=== PATIENT | female | born 1995 | race Caucasian/White ===

== ENCOUNTER 2017-02-12 23:04 | Emergency (ER) | payer MEDICAID ==
[~2017-02-12] VITALS: Ht 162.6 cm; Wt 68.0 kg
--- NOTE | 2017-02-12 23:14 | NUR ---
DR TAYLOR INT EVAL PATIENT
[2017-02-12] MEDS ORDERED: ACETAMINOPHEN ES 500 MG TABLET PO ONE (23:30)
[2017-02-12] MEDS ORDERED: ACETAMINOPHEN ES 500 MG TABLET ONE (23:33)
== END 2017-02-12 23:57 | disposition home or self-care (01) ==
LOC: ER 23:06
DX: M54.2 Cervicalgia (principal); F17.200 Nicotine dependence, unspecified, uncomplicated; V49.9XXA Car occupant (driver) (passenger) injured in unspecified traffic accident, initial encounter; Y93.89 Activity, other specified; Y92.413 State road as the place of occurrence of the external cause; Y99.9 Unspecified external cause status
CPT/HCPCS: A4663

== ENCOUNTER 2017-02-15 11:14 | Emergency (ER) | payer MEDICAID ==
[~2017-02-15] VITALS: Ht 162.6 cm; Wt 68.0 kg
--- NOTE | 2017-02-15 11:40 | NUR ---
PATIENT WAS SEEN BY MD FOR C/O NUASEA AND PAIN.
[2017-02-15] MEDS: KETOROLAC TROMETHAMINE 30 MG INJ IM ONE (11:45)
[2017-02-15] MEDS: ONDANSETRON ODT 4 MG TAB.RAPDIS SL ONE (11:45)
[2017-02-15] MEDS ORDERED: ONDANSETRON ODT 4 MG TAB.RAPDIS ONE (11:53)
[2017-02-15] MEDS ORDERED: KETOROLAC TROMETHAMINE 30 MG INJ ONE (11:53)
--- NOTE | 2017-02-15 12:45 | NUR ---
PATIENT STATES PAIN AND NAUSEA HAVE DIMINISHED.
--- NOTE | 2017-02-15 13:37 | NUR ---
DC, RX AND FOLLOW UP INSTRUCTIONS GIVEN AND EXPLAINED TO PATIENT WHO STATE SHE UNDERSTANDS ALL INSTRUCTIONS.
[2017-02-15 13:38] VITALS: BP 118/68
== END 2017-02-15 13:38 | disposition home or self-care (01) ==
LOC: ER 11:14
DX: S20.219A Contusion of unspecified front wall of thorax, initial encounter (principal); M54.5 Low back pain; V89.2XXA Person injured in unspecified motor-vehicle accident, traffic, initial encounter; Y93.89 Activity, other specified; Y92.413 State road as the place of occurrence of the external cause; Y99.9 Unspecified external cause status; F17.200 Nicotine dependence, unspecified, uncomplicated
CPT/HCPCS: 71101; 93005; 96372; 99284; A4663; J1885; Q0162

== ENCOUNTER 2017-08-07 19:36 | Emergency (ER) | payer MEDICAID, OTHER ==
[~2017-08-07] VITALS: Ht 162.6 cm; Wt 63.5 kg
--- NOTE | 2017-08-07 19:50 | NUR ---
Patient in bed, family at bedside. Patient states she has lower abd pain and has c/o palpitations due to the abd pain.
[2017-08-07] MEDS ORDERED: ONDANSETRON IV *ER 4 MG/2 ML VIAL IV ONE ×2 (20:15→22:45)
[2017-08-07] MEDS ORDERED: HYDROMORPHONE 1 MG/1 ML DISP.SYRIN IV ONE ×2 (20:15→22:45)
[2017-08-07] MEDS ORDERED: IV NORMAL SALINE 500 ML BAG IV ONE ×2 (20:15)
[2017-08-07] MEDS ORDERED: HYDROMORPHONE 2 MG/1 ML DISP.SYRIN ONE ×2 (20:18→22:35)
[2017-08-07] MEDS ORDERED: ONDANSETRON 4 MG/2 ML VIAL ONE ×2 (20:19→22:35)
[2017-08-07 20:28] LABS: BASOPHILS % (AUTO) 0.7 % (0.0-2.0); EOSINOPHILS # (AUTO) 0.1 K/uL (0.0-0.7); EOSINOPHILS % (AUTO) 2.1 % (0.0-7.0); HEMOGLOBIN 13.6 g/dL (10.9-14.3); LYMPHOCYTES # (AUTO) 3.1 K/uL (20.0-40.0); LYMPHOCYTES % (AUTO) 43.7 % (20.5-51.5); MEAN CORPUSCULAR HEMOGLOBIN 30.2 uug (24.7-32.8); MEAN CORPUSCULAR HGB CONC 33 g/dL (32.3-35.6); MEAN CORPUSCULAR VOLUME 91.5 fL (75.5-95.3); MONOCYTES # (AUTO) 0.4 K/uL (2.0-10.0); NEUTROPHILS # (AUTO) 3.4 K/uL (1.8-8.9); NEUTROPHILS % (AUTO) 47.5 % (38.5-71.5); PLATELET COUNT (AUTO) 287 K/uL (179-408); RED BLOOD CELL COUNT(AUTO) 4.48 MIL/uL (3.63-4.92); WHITE BLOOD COUNT (AUTO) 7.1 K/uL (3.8-11.8)
--- NOTE | 2017-08-07 20:28 | NUR ---
Patient in bed, no acute distress noted. Will continue to monitor patient.
[2017-08-07 20:34] LABS: CREATININE 0.8 mg/dL (0.6-1.3); POTASSIUM 3.6 mmol/L (3.5-5.1)
[2017-08-07 20:43] LABS: BILIRUBIN,DIRECT 0.1 mg/dL (0.0-0.2); BILIRUBIN,TOTAL 0.3 mg/dL (0.2-1.0); TOTAL PROTEIN, SERUM 6.9 g/dL (6.4-8.2)
[2017-08-07 21:28] LABS: *BILIRUBIN,URIN NEGATIVE (NEGATIVE); *BLOOD, URINE 2+ (NEGATIVE); *COLOR,URINE YELLOW (YELLOW); *KETONES,URINE NEGATIVE (NEGATIVE); *PROTEIN,URINE NEGATIVE (NEGATIVE); *UROBILINOGEN,URINE 0.2 E.U./dl (NORMAL); LEUKOCYTE ESTERASE ,URINE NEGATIVE (NEGATIVE); NITRITE, URINE NEGATIVE (NEGATIVE); UGLUCOSE NEGATIVE (NEGATIVE)
[2017-08-07 21:29] LABS: *URINE HCG, QUAL NEGATIVE (NEGATIVE)
[2017-08-07 21:30] LABS: *CLARITY,URINE SLIGHTLY HAZY (CLEAR)
[2017-08-07 21:34] LABS: RBC,URINE 20-50 /HPF (0-3)
[2017-08-07 21:35] LABS: BACTERIA,URINE FEW /HPF (NONE SEEN); MUCUS,URINE MODERATE /LPF (0-FEW); SQUAMOUS EPITHELIAL CELL,UR MODERATE /HPF (NONE SEEN)
--- NOTE | 2017-08-07 21:42 | NUR ---
Patient taken to CT via gurney with transporter
--- NOTE | 2017-08-07 22:15 | NUR ---
Patient back from CT. No acute distress noted.
--- NOTE | 2017-08-07 22:47 | NUR ---
Patient discharged to home in stable conditon. Written and verbal after care instructions given. Patient verbalizes understanding of instructions. Ambulated from ER with stable gait. All belongings with patient. patient will be driven home in private vehicle by significant other. Peripheral IV removed.
[2017-08-07 22:48] VITALS: BP 121/74
== END 2017-08-07 22:50 | disposition home or self-care (01) ==
LOC: ER 19:39
DX: N83.201 Unspecified ovarian cyst, right side (principal)
CPT/HCPCS: 36415; 71045; 74176; 76856; 80048; 80076; 81001; 83690; 84703; 85025; 93005; 96361; 96374; 96375; 96376; 99285; A4663; J1170 ×2; J2405 ×2; J7040

== ENCOUNTER 2019-07-23 00:38 | Emergency (ER) | payer MEDICAID, OTHER ==
[~2019-07-23] VITALS: Ht 165.1 cm; Wt 72.6 kg
--- NOTE | 2019-07-23 00:55 | NUR ---
Dr. Martinez at bedside for MSE
[2019-07-23] MEDS ORDERED: HYDROMORPHONE 2 MG/1 ML DISP.SYRIN ONE (01:14)
[2019-07-23] MEDS ORDERED: ONDANSETRON 4 MG/2 ML VIAL ONE (01:14)
[2019-07-23] MEDS ORDERED: HYDROMORPHONE 1 MG/1 ML DISP.SYRIN IM ONE (01:15)
[2019-07-23] MEDS ORDERED: ONDANSETRON 4 MG/2 ML VIAL IM ONE (01:15)
--- NOTE | 2019-07-23 02:20 | NUR ---
Patient discharged to home in stable conditon. Written and verbal after care instructions given. Patient verbalizes understanding of instructions. Patient ambulating with crutches. Family at bedside to drive patient home
[2019-07-23 03:00] VITALS: BP 126/73
== END 2019-07-23 02:20 | disposition home or self-care (01) ==
LOC: ER 00:42
DX: S82.891A Other fracture of right lower leg, initial encounter for closed fracture (principal); F17.200 Nicotine dependence, unspecified, uncomplicated; F10.10 Alcohol abuse, uncomplicated; W18.2XXA Fall in (into) shower or empty bathtub, initial encounter; Y93.89 Activity, other specified; Y92.89 Other specified places as the place of occurrence of the external cause; Y99.8 Other external cause status
CPT/HCPCS: 72192; 73610; 96372 ×2; 99284; J1170; J2405; A4663

== ENCOUNTER 2019-08-07 11:01 | Emergency (ER) | payer MEDICAID, OTHER ==
[~2019-08-07] VITALS: Ht 165.1 cm; Wt 72.6 kg
--- NOTE | 2019-08-07 11:07 | NUR ---
ERMD AT BEDSIDE FOR HX AND PHYSICAL PT IS AMBULATORY W/ CRUTCHES AOX3 RA NAD
--- NOTE | 2019-08-07 11:34 | NUR ---
DIRECTOR OF PROMOTIONS AT BEDSIDE
[2019-08-07] MEDS ORDERED: ONDANSETRON ODT 4 MG TAB.RAPDIS ONE ×2 (11:56→11:57)
[2019-08-07] MEDS ORDERED: MORPHINE SULFATE 2 MG/1 ML DISP.SYRIN IM ONE (12:00)
[2019-08-07] MEDS ORDERED: HYDROCODONE/APAP 10-325 MG TABLET PO ONE (12:00)
[2019-08-07] MEDS ORDERED: ONDANSETRON ODT 4 MG TAB.RAPDIS SL ONE (12:00)
[2019-08-07] MEDS ORDERED: MORPHINE SULFATE 4 MG/1 ML DISP.SYRIN ONE (12:01)
--- NOTE | 2019-08-07 12:32 | NUR ---
Patient discharged to home in stable conditon. Written and verbal after care instructions given. Patient verbalizes understanding of instructions. AMBULATORY W/ STABLE GAIT W/ CRUTCHES, AND R CAM BOOT ALL BELONGINGS W/ PT SISTER WILL DRIVE HER HOME
[2019-08-07 12:34] VITALS: BP 138/76
== END 2019-08-07 12:35 | disposition home or self-care (01) ==
LOC: ER 11:01
DX: G89.18 Other acute postprocedural pain (principal); F17.200 Nicotine dependence, unspecified, uncomplicated
CPT/HCPCS: 73610; 96372; 99283; J2270; A4663; Q0162

== ENCOUNTER 2020-07-01 13:33 | Emergency (ER) | payer MEDICAID, OTHER ==
[~2020-07-01] VITALS: Ht 165.1 cm; Wt 77.1 kg
--- NOTE | 2020-07-01 13:45 | NUR ---
Dr Maldonado at the bedside for MSE. UA collected and sent to LAB.
[2020-07-01 13:56] LABS: *BILIRUBIN,URIN NEGATIVE (NEGATIVE); *BLOOD, URINE NEGATIVE (NEGATIVE); *CLARITY,URINE CLEAR (CLEAR); *COLOR,URINE YELLOW (YELLOW); *KETONES,URINE NEGATIVE (NEGATIVE); *UROBILINOGEN,URINE 0.2 E.U./dl (NORMAL); LEUKOCYTE ESTERASE ,URINE 1+ (NEGATIVE); NITRITE, URINE NEGATIVE (NEGATIVE); PH,URINE 8.5 (5.0-8.0); UGLUCOSE NEGATIVE (NEGATIVE)
[2020-07-01 14:41] LABS: BASOPHILS # (AUTO) 0.2 K/uL (0.0-8.0); BASOPHILS % (AUTO) 2.1 % (0.0-2.0); EOSINOPHILS # (AUTO) 0.1 K/uL (0.0-0.7); EOSINOPHILS % (AUTO) 1.6 % (0.0-7.0); HEMATOCRIT 43.1 % (31.2-41.9); HEMOGLOBIN 14.5 g/dL (10.9-14.3); LYMPHOCYTES # (AUTO) 1.4 K/uL (20.0-40.0); LYMPHOCYTES % (AUTO) 18.9 % (20.5-51.5); MEAN CORPUSCULAR HEMOGLOBIN 31.2 uug (24.7-32.8); MEAN CORPUSCULAR HGB CONC 34 g/dL (32.3-35.6); MEAN CORPUSCULAR VOLUME 92.8 fL (75.5-95.3); MONOCYTES # (AUTO) 0.6 K/uL (2.0-10.0); MONOCYTES % (AUTO) 7.9 % (0.0-11.0); NEUTROPHILS # (AUTO) 5.3 K/uL (1.8-8.9); NEUTROPHILS % (AUTO) 69.5 % (38.5-71.5); PLATELET COUNT (AUTO) 299 K/uL (179-408); RED BLOOD CELL COUNT(AUTO) 4.64 MIL/uL (3.63-4.92); WHITE BLOOD COUNT (AUTO) 7.6 K/uL (3.8-11.8)
[2020-07-01 14:43] LABS: CREATININE 0.7 mg/dL (0.6-1.3); POTASSIUM 4.1 mmol/L (3.5-5.1)
[2020-07-01 14:49] LABS: BILIRUBIN,DIRECT 0.1 mg/dL (0.0-0.2); BILIRUBIN,TOTAL 0.3 mg/dL (0.2-1.0); TOTAL PROTEIN, SERUM 6.6 g/dL (6.4-8.2)
[2020-07-01 15:11] LABS: BACTERIA,URINE FEW /HPF (NONE SEEN); RBC,URINE 0-3 /HPF (0-3); SQUAMOUS EPITHELIAL CELL,UR MANY /HPF (NONE SEEN); WBC,URINE 0-3 /HPF (0-3)
[2020-07-01 15:21] VITALS: BP 120/71
--- NOTE | 2020-07-01 15:21 | NUR ---
Patient discharged to home in stable condition. Written and verbal after care instructions given. Patient verbalizes understanding of instructions. Stressed follow up or return to ER for worsening s/s.
== END 2020-07-01 15:23 | disposition home or self-care (01) ==
LOC: ER 13:33
DX: O26.891 Other specified pregnancy related conditions, first trimester (principal); R10.30 Lower abdominal pain, unspecified; K59.00 Constipation, unspecified; Z3A.01 Less than 8 weeks gestation of pregnancy; O23.41 Unspecified infection of urinary tract in pregnancy, first trimester; B96.20 Unspecified Escherichia coli [E. coli] as the cause of diseases classified elsewhere
CPT/HCPCS: 36415; 76856; 85025; 85730; 86850; 86900; 86901; 87077; 87086; A4663